=== PATIENT | male | born 1940 | race Caucasian/White ===

== ENCOUNTER → 2016-11-06 | Outpatient (CLI) | payer MEDICARE, OTHER ==
[~2016-11-06] MED LIST: ACYCLOVIR 400M400 MG PO; ACYCLOVIR 5% OI30 GM TP; ALBUTEROL2.5 MG/NEB IN; MIRTAZAPINE15 M1 PO; PREDNISONE 10MG10 MG PO; ROXICET 325 MG500 ML PO; VALACYCLOVIR1 GM PO; VALIUM 2MG TABLE2 MG PO; VICODIN 5/500 T1 TAB PO
[2016-11-06 09:41] LABS: HEMOGLOBIN 8.2 g/dL (14.1-18.0); LYMPH # 0.6 K/mm3 (0.7-4.5); LYMPH % 27.9 % (10-50)
[2016-11-06 12:04] LABS: CORRECTED WBC 2.2 K/mm3; NEUTROPHILS 58 % (42-76)
[2016-11-06 12:05] LABS: STOMATOCYTE 1+
== END ==
LOC: LAB 08:59
PROVIDERS: Nurse Practitioner
DX: C85.90 Non-Hodgkin lymphoma, unspecified, unspecified site (principal); D61.818 Other pancytopenia

== ENCOUNTER → 2017-04-29 | Outpatient (CLI) | payer MEDICARE, OTHER ==
[2017-04-29 12:10] LABS: LYMPH # 0.5 K/mm3 (0.7-4.5); LYMPH % 16.8 % (10-50)
[2017-04-29 12:15] LABS: HEMOGLOBIN 6.7 g/dL (14.1-18.0)
[2017-04-29 13:32] LABS: NEUTROPHILS 63 % (42-76)
[2017-04-29 14:55] LABS: BUN 24 mg/dL (7-18)
[2017-04-29 14:56] LABS: GFR (ESTIMATED) 93 ML/MIN (>60)
== END ==
LOC: LAB 11:38
PROVIDERS: Surgery
DX: D64.9 Anemia, unspecified (principal); Z85.048 Personal history of other malignant neoplasm of rectum, rectosigmoid junction, and anus; Z01.818 Encounter for other preprocedural examination

== ENCOUNTER 2017-05-03 08:22 | Outpatient (CLI) | payer MEDICARE, OTHER ==
[2017-05-03 08:39] LABS: HEMOGLOBIN 9.9 g/dL (14.1-18.0)
== END 2017-05-03 09:00 | disposition home or self-care (01) ==
LOC: COP 08:22
PROVIDERS: Internal Medicine
DX: D64.9 Anemia, unspecified (principal)

== ENCOUNTER 2017-06-11 08:00 | Outpatient (CLI) | payer MEDICARE, OTHER ==
[2017-06-11] VITALS (18 sets, daily range): BP systolic 83–124; BP diastolic 43–63
[~2017-06-11] VITALS: Ht 182.9 cm; Wt 44.9 kg
[2017-06-11 09:25] LABS: ABO BLOOD TYPE O; RH BLOOD TYPE POSITIVE
[2017-06-11 09:34] LABS: ANTIHUMAN GLOB CROSSMATCH COMPAT
[2017-06-11 15:18] LABS: HEMOGLOBIN 10.5 g/dL (14.1-18.0)
== END 2017-06-11 15:15 | disposition home or self-care (01) ==
LOC: COP 08:00
PROVIDERS: Internal Medicine
DX: C83.07 Small cell B-cell lymphoma, spleen (principal)
CPT/HCPCS: P9016